=== PATIENT | female | born 1990 | race Caucasian/White ===

== ENCOUNTER 2016-08-28 16:00 | Outpatient (CLI) | payer MEDICAID ==
[~2016-08-28] VITALS: Ht 154.9 cm; Wt 82.2 kg
[~2016-08-28 16:00] MED LIST: ACET325T33 PO; NITR-58 PO; ONDA4TAB8 PO; PREN1TAB49 PO
[2016-08-28 17:13] VITALS: Ht 154.9 cm; Wt 82.2 kg
--- NOTE | 2016-08-28 18:10 | RADRPT ---
PROCEDURE: US OB biophysical profile. CLINICAL INDICATION: evaluation TECHNIQUE: Multiple sonographic images of the pelvis were obtained. The images were reviewed on a PACS workstation. COMPARISON: Obstetrical ultrasound from 04/23/2016 FINDINGS: The cervix is closed and measures 4.7 cm in length. There is a single viable intrauterine gestation. Cardiac activity is present with 134 beats per min demario. There is a breech presentation. The placenta is anterior. There is no evidence of placental abruption. There is a normal amount of amniotic fluid with an BJORN = 14.0 cm. Biophysical profile: movement 2/2 tone 2/2. breathing 2/2 BJORN 2/2 Total 03/06 RPTAT: AA . IMPRESSION: Normal biophysical profile. Normal BJORN. The cervix is closed and measures 4.7 cm in length. Physician Feliciano Date Time Electronically viewed and signed by Physician Feliciano on 08/28/2016 18:10 /
[2016-08-28 18:30] LABS: ADD UMIC YES; URINE BILIRUBIN (Dip) NEGATIVE (NEGATIVE); URINE BLOOD (Dip) NEGATIVE (NEGATIVE); URINE COLOR LT. YELLOW (YELLOW); URINE GLUCOSE (Dip) NEGATIVE (NEGATIVE); URINE KETONES (Dip) NEGATIVE (NEGATIVE); URINE LEUKOCYTE ESTERASE (Dip) TRACE (NEGATIVE); URINE NITRITE (Dip) NEGATIVE (NEGATIVE); URINE TOTAL PROTEIN (Dip) NEGATIVE (NEGATIVE); URINE UROBILINOGEN (Dip) 0.2 E.U./dL (0.1-1.0)
[2016-08-28 18:59] LABS: BACTERIA,URINE FEW; SQUAMOUS EPITHELIAL CELL,UR MANY; URINE RBCS NONE SEEN /HPF (0)
--- NOTE | 2016-08-28 19:42 | TRIAGE ---
OB Triage Datetime Report Generated by CPN: 08/28/2016 19:42 Datetime: 08/28/2016 19:25 Labor Evaluation Frequency: 0 Monitor Mode: External Heart Rate FHR Baseline Rate: 135 Monitor Mode: External US FHR Baseline Changes: No Baseline Change Variability: Moderate 6-25 bpm Accelerations: 15X15 Decelerations: None Category: Category I Datetime: 08/28/2016 19:10 Assessment Type: Triage Maternal Assessment Level of Consciousness: Fully Conscious DTR's/Clonus: DTRs 2+; No Clonus Headache: Denies Blurred Vision: No Respiratory Effort: Unlabored; Regular Rhythm; Equal Expansion Breath Sounds, Left: Clear and Equal Breath Sounds, Right: Clear and Equal Nausea/Vomiting: Denies RUQ Epigastric Pain: Denies Lower Extremities Edema: None Degree: None Upper Extremities Edema: None Degree: None Facial Edema: None Fall Risk Assessment History of Falling: (0) No Secondary Diagnosis: (0) No Ambulatory Aid: (0) Bedrest/Nurse Assist IV Therapy: (0) No Gait: (0) Normal/Bedrest/Immobile Mental Status: (0) Oriented to Own Ability Fall Score: 0 Fall Risk Score Definition: No Risk: No action required Comment: REPORT RECEIVED FROM ELVIA RN Datetime: 08/28/2016 18:08 Monitor Mode: External Pattern: Normal: <= 5 Contractions in 10 Minutes Resting Tone [place]: Relaxed Heart Rate FHR Baseline Rate: 135 Monitor Mode: External US Variability: Moderate 6-25 bpm Decelerations: None Category: Category I Pain Assessment Pain Scale: 3 Pain Presence: Intermittent Pain Type: Pressure Pain Goal: 3 Pain Relief Measures: Comfort Measures Datetime: 08/28/2016 17:10 Stage of : OB Triage Assessment Type: Triage Maternal Assessment Level of Consciousness: Fully Conscious DTR's/Clonus: DTRs 2+; No Clonus Headache: Denies Blurred Vision: No Respiratory Effort: Unlabored; Regular Rhythm; Equal Expansion Breath Sounds, Left: Clear and Equal Breath Sounds, Right: Clear and Equal Nausea/Vomiting: Denies RUQ Epigastric Pain: Denies Lower Extremities Edema: None Degree: None Upper Extremities Edema: None Degree: None Facial Edema: None Temperature Route: Axillary Fall Risk Assessment History of Falling: (0) No Secondary Diagnosis: (0) No Ambulatory Aid: (0) Bedrest/Nurse Assist IV Therapy: (0) No Gait: (0) Normal/Bedrest/Immobile Mental Status: (0) Oriented to Own Ability Fall Score: 0 Fall Risk Score Definition: No Risk: No action required Labor Evaluation Frequency: 0 Monitor Mode: External Resting Tone [place]: Relaxed Heart Rate FHR Baseline Rate: 135 Monitor Mode: External US Variability: Moderate 6-25 bpm Decelerations: None Category: Category I Pain Assessment Pain Scale: 6 Pain Presence: Intermittent Pain Type: Burning; Cramping Pain Location: Abdomen; Perineum Pain Goal: 3 Pain Relief Measures: Comfort Measures Datetime: 08/28/2016 17:08 Time of Arrival: 08/28/2016 15:55 EGA: 32.0 Arrived By: Ambulatory Arrived From: Office Chief Complaint: SENT FROM DR OFFICE TO R/O PTL, DENIES LEAKING OR BLEEDING. MENSTRUAL LIKE CRAMPS WHEN WALKING, DOES NOT FEEL WHEN RESTING. BURNING ON URINATION Movement: Decreased Contractions: Irregular Rupture of Membranes: Denies Vaginal Bleeding: None Vaginal Discharge: Denies Recent Sexual Intercouse: Denies Abdominal Trauma: Not Applicable Patient Complaints: Cramping Additional Patient Complaints: DECREASED MOVEMENT/ R/O PTL Time Provider Notified: 08/28/2016 17:37 Provider Notified: RAPHAEL Initial Plan: MONITOR, U/A, BPP, CL
== END 2016-08-28 19:33 | disposition home or self-care (01) ==
LOC: OBT 16:00 → L-D 16:01 → OBT 19:33
PROVIDERS: ATTEND Obstetrics & Gynecology
DX: O60.03 Preterm labor without delivery, third trimester (principal); Z3A.32 32 weeks gestation of pregnancy
CPT/HCPCS: 76817; 76818; 81001; Z7500; 81003; G0463